=== PATIENT | male | born 1960 | race Caucasian/White ===

== ENCOUNTER 2019-11-04 17:28 | Emergency (ER) | payer BC ==
[2019-11-04] MEDS ORDERED: LIDOCAINE HCL MPF 1% 5ML VIAL ONE (17:47)
[2019-11-04] MEDS ORDERED: LIDOCAINE HCL 1% 20 ML VIAL ONE (17:51)
[2019-11-04] MEDS ORDERED: TETANUS/DIPHTHERIA TOXOID [ADULT] 0.5 ML VIAL IM ONE (18:24)
[2019-11-04] MEDS ORDERED: AMOXICILLIN/POTASSIUM CLAV 875-125 TABLET PO ONE (18:39)
== END 2019-11-04 18:42 | disposition home or self-care (01) ==
LOC: EDH 17:28
DX: S60.451A Superficial foreign body of left index finger, initial encounter (principal); E78.00 Pure hypercholesterolemia, unspecified; K21.9 Gastro-esophageal reflux disease without esophagitis; Z98.890 Other specified postprocedural states; W26.8XXA Contact with other sharp object(s), not elsewhere classified, initial encounter; Y93.89 Activity, other specified; Y92.89 Other specified places as the place of occurrence of the external cause; Y99.8 Other external cause status
CPT/HCPCS: 73140; 90471; 90714; 99284; J3490